=== PATIENT | female | born 1995 | race Caucasian/White ===

== ENCOUNTER 2020-08-07 14:09 | Inpatient (IN) | payer OTHER ==
[~2020-08-07 14:09] MED LIST: Heparin 1,000 UNITS/ML VIAL ONE; Magnevist 469MG/ML 20 ML VIAL ONE
[2020-08-07] MEDS ORDERED: Ondansetron PF 4 MG/2 ML Vial ONE (16:21)
[2020-08-07] MEDS ORDERED: Morphine 4 MG/ML VIAL ONE ×2 (16:21→18:47)
[2020-08-07] MEDS ORDERED: Cefepime 2 GM VIAL ONE (16:21)
[2020-08-07] MEDS ORDERED: Senokot S 8.6-50 MG TAB PO PRN (17:58)
[2020-08-07] MEDS ORDERED: Calcium Carbonate 500 MG ChewTAB PO PRN (17:58)
[2020-08-07] MEDS ORDERED: Ondansetron ODT 4 MG TAB PO PRN (17:58)
[2020-08-07] MEDS ORDERED: Acetaminophen 325 MG TAB PO PRN (17:58)
[2020-08-07] MEDS ORDERED: Vancomycin 1 GM/200 ML BAG ONE (18:44)
[2020-08-07] MEDS ORDERED: Morphine 2 MG/ML VIAL SLOW IVP PRN (19:49)
[2020-08-07] MEDS ORDERED: diphenhydrAMINE 25 MG CAP PO PRN (20:30)
[2020-08-07 20:41] VITALS: BMI 18.1
[2020-08-07] MEDS: Sodium Chloride 0.9% 1,000 ML IV SCH (20:56)
[2020-08-07] MEDS: MEROPENEM 1 GM/50 ML 1 GM in Premix Bag 1 BAG IVPB SCH (21:32)
[2020-08-07] MEDS: HYDROcodone/Acetaminophen 5/325 mg Tablet PO PRN (22:56)
[2020-08-08] MEDS: Ondansetron PF 4 MG/2 ML Vial IVP PRN ×2 (04:07→16:56)
[2020-08-08] MEDS: MEROPENEM 1 GM/50 ML 1 GM in Premix Bag 1 BAG IVPB SCH ×3 (04:07→20:31)
[2020-08-08] MEDS: HYDROcodone/Acetaminophen 5/325 mg Tablet PO PRN (04:13)
[2020-08-08] MEDS: Vancomycin 1 GM in Premix Bag 1 BAG IVPB SCH ×2 (06:04→18:00)
[2020-08-08 06:25] LABS: #Eosinphils 0.3 thou/uL (0.0-0.7); #Lymphocytes 2.2 thou/uL (1.20-3.40); #Monocytes 0.8 thou/uL (0.11-0.59); #Neutrophils 7.7 thou/uL (1.40-6.50); %Basophils 0.4 % (0.0-1.0); %Eosinophils 2.4 % (0.0-10.0); %Lymphocytes 19.9 % (21.0-51.0); %Monocytes 7.5 % (0.0-10.0); %Neutrophils 69.8 % (42.0-75.0); Hemoglobin 13.1 g/dL (12.0-16.0); Mean Corpuscular HGB CONC 34.4 g/dL (32.0-36.0); Mean Corpuscular Hemoglobin 32.1 pg (27.0-31.0); Mean Corpuscular Volume 93.3 fL (78.0-98.0); Mean Platelet Volume 8.4 fL (7.4-10.4); Platelet Count 206 thou/uL (130-400); RBC Distribution Width 11.9 % (11.5-14.5); Red Blood Cell (RBC) Count 4.08 mill/uL (4.20-5.40); White Blood Cell (WBC) Count 11.1 thou/uL (4.8-10.8)
[2020-08-08 06:47] LABS: ALT (SGPT) 11 U/L (8-55); AST (SGOT) 15 U/L (5-34); Albumin 3.4 g/dL (3.5-5.0); Alkaline Phosphatase 91 U/L (40-110); Anion Gap 14 mmol/L (10-20); BUN (Urea Nitrogen) 9 mg/dL (7.0-18.7); Bilirubin, Total 0.3 mg/dL (0.2-1.2); CK (CPK) 22 U/L (29-168); CRP (Inflammatory) 1.96 mg/dL (= or < 0.5); Calc. Creatinine Clearance 105 mL/min (70-130); Calcium 8.6 mg/dL (7.8-10.44); Carbon Dioxide 23 mmol/L (22-29); Chloride 104 mmol/L (98-107); Globulin 2.9 g/dL (2.4-3.5); Glucose 95 mg/dL (70-105); Magnesium 1.8 mg/dL (1.6-2.6); Potassium 3.8 mmol/L (3.5-5.1); Protein, Total 6.3 g/dL (6.0-8.3); Sodium 137 mmol/L (136-145)
[2020-08-08] MEDS: Sodium Chloride 0.9% 1,000 ML IV SCH ×2 (09:00→23:19)
[2020-08-08] MEDS: Multivit, Therapeutic 1 TAB PO SCH (09:00)
[2020-08-08] MEDS: Thiamine 100 MG TAB PO SCH (09:00)
[2020-08-08] MEDS: Saccharomyces boulardii 250 MG CAP PO SCH (09:00)
[2020-08-08 09:17] LABS: SARS-CoV-2 NAA Rapid Test Not Detected (NotDetected)
[2020-08-08] MEDS ORDERED: Neomycin-Polymyxin 1 ML AMP ONE (11:48)
[2020-08-08] MEDS ORDERED: Midazolam HCl 2 mg/2 ml Vial ONE (12:00)
[2020-08-08] MEDS ORDERED: Ondansetron PF 4 MG/2 ML Vial ONE ×2 (12:01→12:25)
[2020-08-08] MEDS ORDERED: Dexmedetomidine 200 MCG/2 ML VIAL ONE (12:20)
[2020-08-08] MEDS ORDERED: Fentanyl 100 MCG/2 ML VIAL ONE ×3 (12:20→13:52)
[2020-08-08] MEDS ORDERED: Dexamethasone 20 MG/5 ML VIAL ONE (12:25)
[2020-08-08] MEDS ORDERED: Rocuronium Bromide 10 MG/ML (10ML VIAL) ONE (12:25)
[2020-08-08] MEDS ORDERED: PROPOFOL 200 MG/20 ML VIAL ONE (12:25)
[2020-08-08] MEDS ORDERED: Ketorolac Tromethamine 30 MG/ML VIAL ONE (12:25)
[2020-08-08] MEDS ORDERED: Lidocaine 1% PF 5 ML VIAL ONE (12:25)
[2020-08-08] MEDS ORDERED: Ondansetron HCl/PF 4 MG/2 ML Vial IVP PRN (13:28)
[2020-08-08] MEDS ORDERED: Promethazine HCl 25 MG/ML VIAL SLOW IVP PRN (13:28)
[2020-08-08] MEDS ORDERED: Promethazine HCl 25 MG/ML VIAL IM PRN (13:28)
[2020-08-08] MEDS ORDERED: Promethazine HCl 25 MG in Sodium Chloride 0.9% 50 ML IVPB PRN (13:28)
[2020-08-08] MEDS: Morphine 4 MG/ML VIAL SLOW IVP PRN ×2 (16:56→20:30)
[2020-08-09] MEDS: HYDROcodone/Acetaminophen 5/325 mg Tablet PO PRN (04:21)
[2020-08-09] MEDS: MEROPENEM 1 GM/50 ML 1 GM in Premix Bag 1 BAG IVPB SCH ×3 (04:22→23:00)
[2020-08-09 05:44] LABS: #Lymphocytes 1.3 thou/uL (1.20-3.40); #Monocytes 1.1 thou/uL (0.11-0.59); #Neutrophils 13.7 thou/uL (1.40-6.50); %Basophils 0.1 % (0.0-1.0); %Eosinophils 0.1 % (0.0-10.0); %Lymphocytes 7.8 % (21.0-51.0); Hemoglobin 12.4 g/dL (12.0-16.0); Mean Corpuscular HGB CONC 32.5 g/dL (32.0-36.0); Mean Corpuscular Hemoglobin 30.4 pg (27.0-31.0); Mean Corpuscular Volume 93.4 fL (78.0-98.0); Mean Platelet Volume 8.9 fL (7.4-10.4); Platelet Count 215 thou/uL (130-400); RBC Distribution Width 11.8 % (11.5-14.5); Red Blood Cell (RBC) Count 4.08 mill/uL (4.20-5.40); White Blood Cell (WBC) Count 16.1 thou/uL (4.8-10.8)
[2020-08-09 06:03] LABS: Vancomycin, Trough 4.7 ug/mL
[2020-08-09 06:20] LABS: ALT (SGPT) 12 U/L (8-55); AST (SGOT) 12 U/L (5-34); Albumin 3.4 g/dL (3.5-5.0); Alkaline Phosphatase 82 U/L (40-110); BUN (Urea Nitrogen) 5 mg/dL (7.0-18.7); Bilirubin, Total 0.3 mg/dL (0.2-1.2); Calc. Creatinine Clearance 113 mL/min (70-130); Calcium 8.8 mg/dL (7.8-10.44); Carbon Dioxide 24 mmol/L (22-29); Chloride 107 mmol/L (98-107); Glucose 135 mg/dL (70-105); Protein, Total 6.4 g/dL (6.0-8.3)
[2020-08-09] MEDS: Vancomycin 1 GM in Premix Bag 1 BAG IVPB SCH ×5 (06:26→23:31)
[2020-08-09 06:28] LABS: Potassium 3.9 mmol/L (3.5-5.1); Sodium 137 mmol/L (136-145)
[2020-08-09 06:30] LABS: Anion Gap 10 mmol/L (10-20)
[2020-08-09] MEDS: Morphine 4 MG/ML VIAL SLOW IVP PRN ×3 (08:29→19:31)
[2020-08-09] MEDS: Multivit, Therapeutic 1 TAB PO SCH (08:33)
[2020-08-09] MEDS: Saccharomyces boulardii 250 MG CAP PO SCH (08:33)
[2020-08-09] MEDS: Thiamine 100 MG TAB PO SCH (08:33)
[2020-08-09] MEDS ORDERED: Ketorolac Tromethamine 30 MG/ML VIAL IVP SCH (21:15)
[2020-08-10] MEDS: Morphine 4 MG/ML VIAL SLOW IVP PRN ×3 (04:23→16:16)
[2020-08-10] MEDS: MEROPENEM 1 GM/50 ML 1 GM in Premix Bag 1 BAG IVPB SCH ×3 (04:25→20:33)
[2020-08-10] MEDS ORDERED: Vancomycin 1 GM in Premix Bag 1 BAG IVPB SCH (04:30)
[2020-08-10 05:43] LABS: Vancomycin, Trough 12.7 ug/mL
[2020-08-10] MEDS: Vancomycin 1 GM in Premix Bag 1 BAG IVPB SCH ×5 (06:06→21:19)
[2020-08-10] MEDS: Thiamine 100 MG TAB PO SCH (07:59)
[2020-08-10] MEDS: Saccharomyces boulardii 250 MG CAP PO SCH (07:59)
[2020-08-10] MEDS: Multivit, Therapeutic 1 TAB PO SCH (08:00)
[2020-08-11] MEDS: MEROPENEM 1 GM/50 ML 1 GM in Premix Bag 1 BAG IVPB SCH ×2 (04:01→12:36)
[2020-08-11] MEDS: Vancomycin 1 GM in Premix Bag 1 BAG IVPB SCH ×3 (04:31→10:34)
[2020-08-11 07:57] VITALS: BP 126/85; TEMP 98.3
[2020-08-11] MEDS: Thiamine 100 MG TAB PO SCH (09:18)
[2020-08-11] MEDS: Saccharomyces boulardii 250 MG CAP PO SCH (09:18)
[2020-08-11] MEDS: Multivit, Therapeutic 1 TAB PO SCH (09:18)
[2020-08-11 10:16] LABS: Vancomycin, Trough 31.5 ug/mL
[2020-08-11] MEDS ORDERED: Vancomycin 1 GM in Premix Bag 1 BAG IVPB SCH (11:15)
== END 2020-08-11 17:46 | disposition home or self-care (01) | DRG 501 ==
LOC: ERS 14:09 → T4-A 16:38
PROVIDERS: ADMIT Internal Medicine; ATTEND Internal Medicine
PROC: 0PDH0ZZ Extraction of Right Radius, Open Approach (ICD-10-PCS; 2020-08-08)
PROC: 02HV33Z Insertion of Infusion Device into Superior Vena Cava, Percutaneous Approach (ICD-10-PCS; principal; 2020-08-10)
PROC: B548ZZA Ultrasonography of Superior Vena Cava, Guidance (ICD-10-PCS; 2020-08-10)
DX: M86.131 Other acute osteomyelitis, right radius and ulna (principal); L02.413 Cutaneous abscess of right upper limb; L03.113 Cellulitis of right upper limb; Z20.822 Contact with and (suspected) exposure to COVID-19; F41.9 Anxiety disorder, unspecified; F17.210 Nicotine dependence, cigarettes, uncomplicated; N18.30 Chronic kidney disease, stage 3 unspecified; E28.2 Polycystic ovarian syndrome; S51.851A Open bite of right forearm, initial encounter; W54.0XXA Bitten by dog, initial encounter; Z71.6 Tobacco abuse counseling
CPT/HCPCS: 36415; 36569; 76000; 80053; 80202; 82550; 83735; 85025; 85652; 86140; 87040; 87070; 87077; 87205; 96365; 96367; 96375; 96376; A9579; C1751; J0692; J1100; J1644; J1885; J2185; J2250; J2270; J2405; J2550; J2704; J3010; J3370; Q0163; U0002; U0003; U0005